=== PATIENT | female | born 1990 | race African-American/Black ===

== ENCOUNTER 2019-11-16 08:25 | Inpatient (IN) | payer OTHER ==
[2019-11-15 12:52] VITALS: BMI 30.1
[2019-11-16] MEDS ORDERED: VASOPRESSIN 20 UNITS/ML VIAL IV ONE (09:43)
[2019-11-16] MEDS ORDERED: DEXAMETHASONE SOD PHOSPHATE/PF 10 MG/ML SDV ONE (10:12)
[2019-11-16] MEDS ORDERED: MIDAZOLAM HCL 2 MG/2 ML SINGLE DOSE VIAL ONE ×2 (11:32)
[2019-11-16] MEDS ORDERED: PROPOFOL 20 ML ONE (11:55)
[2019-11-16] MEDS ORDERED: LIDOCAINE HCL/PF 2% SDV 5ML VIAL ONE (11:55)
[2019-11-16] MEDS ORDERED: ROCURONIUM BROMIDE 50 MG/5 ML SYRINGE ONE (11:55)
[2019-11-16] MEDS ORDERED: fentaNYL CITRATE 250 MCG/5 ML VIAL ONE (11:55)
[2019-11-16] MEDS ORDERED: ceFAZolin 2 GRAM PREMIX BAG IVPB ONE (12:02)
[2019-11-16] MEDS ORDERED: HEPARIN NA (PORCINE) 5,000 UNITS/ML 1ML VIAL ONE (12:04)
[2019-11-16] MEDS ORDERED: KETOROLAC TROMETHAMINE 30 MG/1 ML VIAL ONE (12:13)
[2019-11-16] MEDS ORDERED: DEXAMETHASONE SOD PHOSPHATE 4 MG/1 ML VIAL ONE (12:13)
[2019-11-16] MEDS ORDERED: ceFAZolin SODIUM 1 GM VIAL ONE ×2 (12:13)
[2019-11-16] MEDS ORDERED: HYDROmorphone HCl 2 MG/ML VIAL ONE (12:31)
[2019-11-16] MEDS ORDERED: NEOSTIGMINE METHYLSULFATE 0.5 MG/ML - 10 ML MDV ONE (14:25)
[2019-11-16] MEDS ORDERED: GLYCOPYRROLATE 0.2 MG/1 ML VIAL ONE ×2 (14:25)
--- NOTE | 2019-11-16 14:40 | OP ---
Operative Note - Note: Operative Date: 11/16/19 Pre-Operative Diagnosis: Large, symptomatic leiomyomata. Operation: Myomectomy. Supracervical hysterectomy. BS. AMBER. Findings: Very large adenomyosis with distortion of the uterus. Adhesions. Myomas. Post-Operative Diagnosis: Other (Adenomyosis.) Anesthesiologist/ATTENDANT SALES: Wai Smith Anesthesia: General Estimated Blood Loss (mls): 750 (Cell saver returned 250 cc.) Blood Volume Replaced (mls): 250 Operative Report Dictated: Yes
[2019-11-16] MEDS ORDERED: ESMOLOL HCL 100,000 MCG/10 ML VIAL ONE (14:43)
[2019-11-16] MEDS ORDERED: DOCUSATE SODIUM 100 MG CAPSULE (FP) PO PRN (14:48)
[2019-11-16] MEDS ORDERED: BISACODYL 5 MG TABLET.DR (FP) PO PRN (14:48)
[2019-11-16] MEDS ORDERED: oxyCODONE HCL 5 MG TABLET PO PRN ×3 (14:48→15:02)
[2019-11-16] MEDS ORDERED: IBUPROFEN 800 MG/8 ML IJ IVPB PRN (14:48)
[2019-11-16] MEDS ORDERED: ONDANSETRON 4 MG/2 ML VIAL IVPUSH PRN ×2 (14:48→15:00)
[2019-11-16] MEDS ORDERED: PROMETHAZINE HCL 25 MG/1 ML VIAL IVPUSH PRN (15:00)
[2019-11-16] MEDS ORDERED: LACTATED RINGERS SOLUTION 1,000 ML/1,000 ML INFUS.BAG IV SCH (15:00)
--- NOTE | 2019-11-16 15:03 | SURG ---
Surgery Denier Control Operator Note Denier Control Operator: Roopa Shi PA-C Date of Service: 11/16/19 Diagnosis: Large, symptomatic leiomyomata. Procedure: Myomectomy. Supracervical hysterectomy. BS. LOA. Ochoa was present for the entirety of the operative procedure. For further detail, please refer to operative report. Visit type - Case Type Case Type: Scheduled - Emergency Emergency Visit: No - New patient This patient is new to me today: Yes Date on this admission: 11/16/19
[2019-11-16] MEDS ORDERED: ACETAMINOPHEN 1000 MG/100 ML VIAL (NON FORMULARY) IVPB ONE (15:05)
[2019-11-16 17:54] LABS: HEMATOCRIT 29.6 % (32.4-45.2); HEMOGLOBIN 9.1 GM/dL (10.7-15.3); MCHC 30.9 g/dl (32.0-36.0); MEAN CELL VOLUME 60.7 fl (80-96); MEAN PLT VOLUME 9.1 fl (7.5-11.1); PLATELET COUNT 223 K/MM3 (134-434); RBC 4.88 M/mm3 (3.60-5.2); RDW 23.6 % (11.6-15.6); WHITE BLOOD COUNT 10.1 K/mm3 (4.0-10.0)
[2019-11-16 17:55] LABS: MCH 18.8 pg (25.7-33.7)
[2019-11-16] MEDS: CEFAZOLIN 1 GM/D5W 1 GM/50 ML BAG IVPB SCH (21:26)
[2019-11-16] MEDS: ACETAMINOPHEN 1000 MG/100 ML VIAL (NON FORMULARY) IVPB SCH ×2 (21:27→22:54)
--- NOTE | 2019-11-16 22:36 | PN ---
Progress Note (short form) - Note Progress Note: POD # 0 VSS. Pt. feels well. Pain under control. Procedure explained in details. Reasons for hysterectomy reviewed All questions answered. FRANCHESKA collier.
[2019-11-17] MEDS: ACETAMINOPHEN 1000 MG/100 ML VIAL (NON FORMULARY) IVPB SCH (03:02)
[2019-11-17] MEDS: CEFAZOLIN 1 GM/D5W 1 GM/50 ML BAG IVPB SCH (03:02)
--- NOTE | 2019-11-17 08:11 | PN ---
Progress Note (short form) - Note Progress Note: Post op day#1/S/P Supracervical hysterectomy under GA with TAP block uneventful.Patient stable and c/o little pain for which she is on medication.No any anesthesia related problem.Patient Dc from the anesthesia care.
--- NOTE | 2019-11-17 08:26 | PN ---
Progress Note (short form) - Note Progress Note: POD#1. Feels well. Stable. OOB. Surgery discussed again. PE: OK. Abd. soft. Dressing clean. Wound dry. No CVA, extrem.T I/P: Good recovery. GUMARO. OOB! Lovenox.
[2019-11-17] MEDS: ENOXAPARIN NA (PORCINE) 30 MG/0.3 ML DISP.SYRIN SQ SCH (09:54)
[2019-11-17] MEDS: FERROUS SO4 325 MG TABLET (FP) PO SCH (09:54)
[2019-11-17] MEDS ORDERED: IRON CARBONYL PO SCH (10:00)
[2019-11-17 10:47] LABS: HEMATOCRIT 27.7 % (32.4-45.2); HEMOGLOBIN 8.7 GM/dL (10.7-15.3); MCHC 31.5 g/dl (32.0-36.0); MEAN CELL VOLUME 61.7 fl (80-96); MEAN PLT VOLUME 9.1 fl (7.5-11.1); PLATELET COUNT 230 K/MM3 (134-434); RBC 4.49 M/mm3 (3.60-5.2); RDW 24.5 % (11.6-15.6)
[2019-11-17 10:50] LABS: MCH 19.4 pg (25.7-33.7)
[2019-11-17 11:28] LABS: BLOOD UREA NITROGEN 9.3 mg/dL (7-18); CREATININE 0.7 mg/dL (0.55-1.3); POTASSIUM 4.3 mmol/L (3.5-5.1)
--- NOTE | 2019-11-17 15:21 | OP ---
DATE OF OPERATION: DATE OF DICTATION: 11/16/2019 PREOPERATIVE DIAGNOSIS: Large, symptomatic leiomyomata. POSTOPERATIVE DIAGNOSES: Large adenomyosis with gross distortion of the uterus. Leiomyomata. Left-sided pelvic adhesions. OPERATION: Myomectomy. Supracervical hysterectomy. Bilateral salpingectomy. Lysis of adhesions. SURGEON: Tracy Perry MD DOCK LOADER: SLOAN Adan ANESTHESIA: Wai Smith MD; general. PROCEDURE AND FINDINGS: Under general anesthesia, in dorsal supine position, patient was examined. Uterus was enlarged at 24-26-weeks' gestational size. Cardoso catheter was instilled. Patient was prepped and draped for the laparotomy. Abdomen was entered through a Pfannenstiel incision that was then carried through the fascia. The rectus muscles were and peritoneum was opened vertically. Cell Saver was activated. With some difficulty, uterus was then elevated above the abdomen and cul-de-sac was packed with a rolled, moist lap pad. Thorough examination was carried out. of the uterus which was at least 20-22-weeks' size, while the uterus itself grossly stretched and distorted by what seemed to be adenomyosis. Bilaterally, adnexa were noted symmetrically on the top of the uterus. With some difficulty, a long, thin cervix was palpated, somewhat deviated to the right. Large pedunculated myoma about 5 cm was noted on the fundus. Posterior myoma bulging from the uterine wall was also observed. Adnexa were completely within normal limits with ovulatory stigmata bilaterally. Tubes were normal. Decision was made to do the posterior myomectomy first. Uterine serosa was incised vertically using Bovie and very irregular, large myoma was approached. Myoma was put under tension, and by blunt, sharp, and electrodissection, it was freed. The area was bleeding profusely. It was disappointing that myoma was relatively small, about 5-7-cm size, comparing to general size of the uterus. It did not affect the general size and shape of the uterus a great deal. The area was secured, nonetheless. Multiple layers of Biosyn-0 sutures were used to control the bleeding. Using Biosyn 2-0, serosa and external layer of the myometrium were closed in a baseball suture. Uterus was explored, again. A few isolated small myomas were noted. It was an inescapable conclusion of the surgeon that uterus was largely distorted by extensive and relatively symmetrical adenomyosis. Removal of the myomas would not have changed the future function of the uterus. Decision had to be made, whether hysterectomy is the right way to approach it. I broke scrub and called patient's family. I spoke to her mother and her . Her mother had excellent command of Divehi and was translating for the . I explained the situation and asked them to help me with making a decision. Patient would have great deal of difficulties both conceiving and carrying the with uterus like that. She also has had a history of severe menometrorrhagia, multiple transfusions. 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 She has May-Thurner syndrome and cannot be treated with hormones under any circumstances, which also limits the ability to control her bleeding. Prior to this operation, patient was consulted by both the regional trainer and vascular surgeon. I presented the situation to the family. I offered closing the abdomen and leaving the uterus inside. Both patient's mother and her felt very strongly that her health is the most important thing. Patient has been suffering tremendously with menorrhagia, as well as pelvic pain, and possibility of a thrombosis increased with the size of the uterus is an added concern. They both urged me firmly and without any hesitation to go ahead and remove the uterus. I explained to them that I will preserve her ovaries and most likely part of the cervix. Upon returning to the operating room, LigaSure device was used. Right-sided round ligament was opened, and with some difficulty, bladder flap was developed and incised. Utero-ovarian ligament and fallopian tube were then dissected off the uterus using a LigaSure device. Right side was skeletonized and uterine vessels were noted entering the uterus relatively high. They were clamped, divided, and double-suture ligated using Vicryl-1 material. With bladder flap out of the way, cardinal ligaments were also partly clamped, divided, and suture ligated. Left side of the uterus was not as easy. Left round ligament was shortened and thick. It was divided and so was utero-ovarian ligament and fallopian tube, which were using LigaSure from the body of the uterus. Adhesions of some bowel and omentum were noted to the posterior aspect of the broad ligament and lower uterine segment. They were divided completely using sharp dissection as well as Bovie. Bowel and omentum were allowed to drop back. Bladder flap was then completely incised, and by sharp and blunt dissection, taken off the lower uterine segment and cervix. With cervix being deviated to the right side, it was difficult to find where the uterine vessels were entering the uterus. Thorough dissection was carried out to skeletonize this area, and vessel plexus was then clamped with Tomy clamp, divided, and doubly suture ligated with Vicryl-1 suture material. Cardinal ligaments were much thicker and more extensive on the left side, and they required three bites and clamping, dividing, and suture ligating. At that point, uterine fundus was dissected off the cervix with about three-fourths of the cervix being left. Endocervical canal was coagulated. Cervical stump was secured with interrupted [id number] Vicryl-1 sutures. About 200 mL of blood was retained in the uterus, escaped into the abdomen, and was suctioned. This blood probably was not in circulation, but it was still added to the blood loss assessment. Pelvis was then thoroughly lavaged and suctioned. Cervical stump was closed nicely and there was no bleeding. Decision was made to remove both fallopian tubes and this was done by dividing the mesosalpinx with the LigaSure device. Both tubes were sent for pathological assessment. Excellent blood supply was left for both ovaries. Pelvis was again lavaged and hemostasis was assessed meticulously. Areas of dissection were covered with pieces of Surgicel. Procedure was completed and we proceeded to close the abdomen. Count was reported as correct. Peritoneum was closed with continuous, running Biosyn 2-0 suture. Fascia was closed with continuous, running Vicryl-1 suture. Subcutaneous tissue was closed with interrupted Biosyn and 2-0 Vicryl sutures and skin edges were approximated with 3-0 V-Loc suture and Steri-Strips. Sterile dressing was placed on the incision and held with a binder. In spite of the outcome being different than the one intended, surgery went uneventfully. There were no complications during the operation. Position of the ureters was checked frequently and they were far away from the dissection area. Urine was clear in the Cardoso catheter bag. Total blood loss was estimated at 750 m. Cell Saver returned 250 mL to the patient. Patient was awakened without difficulty, and transferred to the PACU, comfortable and stable. TRACY PERRY MD [id number]
[2019-11-17] MEDS ORDERED: IBUPROFEN 600 MG TABLET (FP) PO PRN (15:27)
--- NOTE | 2019-11-17 19:21 | PN ---
Progress Note (short form) - Note Progress Note: VSS. Excellent pain control; just occasional motrin. Passing gas. PE excellent. Abd. flat. BS pos. Incision clean and dry. No cva, extrem T. Anticipating discharge tomorrow.
[2019-11-18] MEDS ORDERED: ACETAMINOPHEN 325 MG TABLET (FP) PO PRN (05:07)
[2019-11-18 08:41] LABS: BASO % 0.2 % (0-2.0); EOS % 0.7 % (0-4.5); HEMATOCRIT 25.6 % (32.4-45.2); HEMOGLOBIN 7.9 GM/dL (10.7-15.3); LYMPH % 34.8 % (8-40); MCHC 30.8 g/dl (32.0-36.0); MEAN CELL VOLUME 62.1 fl (80-96); MEAN PLT VOLUME 9.1 fl (7.5-11.1); MONO % 5.1 % (3.8-10.2); NEUT % 59.2 % (42.8-82.8); PLATELET COUNT 180 K/MM3 (134-434); RBC 4.12 M/mm3 (3.60-5.2); RDW 24.6 % (11.6-15.6); WHITE BLOOD COUNT 7.1 K/mm3 (4.0-10.0)
[2019-11-18] MEDS ORDERED: ASPIRIN 81 MG CHEWABLE TABLETS PO SCH ×2 (08:45→10:00)
[2019-11-18 08:48] LABS: MCH 19.2 pg (25.7-33.7)
[2019-11-18] MEDS: FERROUS SO4 325 MG TABLET (FP) PO SCH (10:01)
[2019-11-18] MEDS: ENOXAPARIN NA (PORCINE) 30 MG/0.3 ML DISP.SYRIN SQ SCH (10:02)
[2019-11-18 10:30] VITALS: BP 130/83; PULSE 92; TEMP 98.5
--- NOTE | 2019-11-18 11:37 | DS ---
"Physical Exam: SUBJECTIVE: Patient seen and examined. She had no complaints of Cp/SOB. Tolerating a diet without nausea, passing flatus but no BM. OOB and ambulating OBJECTIVE: Vital Signs Period Temp Pulse Resp BP Sys/Osborn Pulse Ox Last 24 Hr 97.8 F-98.5 F 89-99 20-20 117-130/64-83 PHYSICAL EXAM GENERAL: The patient is awake, alert, and fully oriented, in no acute distress. LUNGS: Breath sounds equal, clear to auscultation bilaterally. HEART: Regular rate and rhythm. ABDOMEN: Soft, nondistended, non-tender. Inc c/d/i with steri-strips. Abdominal binder in place. EXTREMITIES: warm, well-perfused, no edema. No calf tenderness or swelling noted b/l LABS Laboratory Results - last 24 hr 11/18/19 07:46 WBC 7.1 RBC 4.12 Hgb 7.9 L Hct 25.6 L MCV 62.1 L MCH 19.2 L MCHC 30.8 L RDW 24.6 H Plt Count 180 D MPV 9.1 Absolute Neuts (auto) 4.2 Neutrophils % 59.2 Lymphocytes % 34.8 Monocytes % 5.1 Eosinophils % 0.7 Basophils % 0.2 Nucleated RBC % 0 HOSPITAL COURSE: The patient was admitted to the Med-Surg Unit after an elective repair of her leiomyomas. Now, s/p open abdominal hysterectomy. Pain management was achieved with a narcotic and non-narcotic oral and IV regimen. POD #1, the patients diet was advanced and her crawford catheter was rmoved. Hemoglobin and hematocrit were monitored as well as vitals and remained stable throughout admission. Pretty-operative IV ABX were administered. DVT prophylaxis was achieved with Lovenox 30mg qd, SCDs and early ambulation, and aspirin 81 mg daily startng POD#2. The patient was discharged to home with eliquis 2.5mg gibson BID and her QOD aspirin dose was resumed. She was to follow up with hematology one week post-op. The patient ambulated the halls without issue. Narcotic scripts were checked with [facility] prior to escribe. The discharge instructions and an oral pain management plan were reviewed with the patient. All questions answered. Above plan discussed with Dr. Mike and agreed. Date of Admission:11/16/19 Date of Discharge: 11/18/19 Minutes to complete discharge: 30 Discharge Summary Problems reviewed: Yes Reason For Visit: PELVIC PAIN Condition: Good - Instructions Diet, Activity, Other Instructions: Dr. Mike AUDIT CONTROL CLERK discharge instructions Physical activity: Resume your normal everyday activity as tolerated no heavy lifting or exercise until seen by your surgeon. You may walk unlimited amounts and climb stairs. You may resume driving the car when you feel safe and comfortable behind the wheel. No sexual activity as instructed by Dr. Mike. Wound care: If you have a bandage, leave it on, and keep dry for 48 hours. After that time discard the outer bandage. If they are tapes on the skin under the outer of bandage leave them in place. They will peel off in the next 7 to 10 days. Do Not Peel them off. If there are tapes present on the skin, you may shower over them. Diet: There are no dietary restrictions. Eat healthy, high-fiber foods. Drink 6 to 8 glasses of liquid each day. This will assist in keeping your bowels are regular. Pain management: You may take Tylenol or acetaminophen or Ibuprofen (for example, Motrin, Advil etc.) every 6 hours as needed for pain. Call Dr. Mike for any of the following: * Severe pain not relieved by medication * Fever of 101 or higher * Excessive bleeding or drainage on dressing Call the office at [phone] for an appointment in seven to 10 days. Follow up with your hematology physician next week, you were given a script for eliquis a blood thinner. please take it as prescribed. Continue your aspirin 81mg every other day. This report was requested by: Roopa Shi | Reference #: [id number] Disposition: HOME - Home Medications Comprehensive Discharge Medication List: Ambulatory Orders Iron,Carbonyl [Feosol] 90 mg PO DAILY 11/15/19 Aspirin [ASA -] 81 mg PO Q48H tab.chew 11/18/19 Docusate Sodium [Colace -] 100 mg PO BID #14 capsule 11/18/19 Ibuprofen [Motrin -] 600 mg PO Q4H PRN tablet 11/18/19 Oxycodone HCl 5 mg PO Q6H PRN #12 tablet MDD 4 11/18/19 Prescription Drug Monitoring Program (I-STOP) results: I-STOP reviewed and no issues identified This patient is new to me today: No Emergency Visit: No Critical Care patient: No - Discharge Referral Referred to [facility] No"
[2019-11-18 14:10] LABS: ANISOCYTOSIS 1+; MACROCYTOSIS 0; OVALOCYTE 1+; PLATELET ESTIMATE NORMAL; TARGET CELLS 1+; TEAR DROP CELLS 1+
--- NOTE | 2019-11-18 15:30 | PATH ---
Surgical Pathology Report Patient Name: FUNMI WARNRE [facility]. Rec. #: [id number] /Age/Gender: 1990 (Age: 29) / F Account: [id number] Location: [facility] OBS/CERAMIC SPRAYER Taken: 11/16/2019 Received: 11/16/2019 Reported: 11/18/2019 Physicians: Sher Mike MD Specimen(s) Received A: POSTERIOR MYOMA AND UTERUS B: FALLOPIAN TUBE LEFT C: FALLOPIAN TUBE RIGHT Clinical History Leiomyomas of uterus Final Diagnosis A. POSTERIOR MYOMA AND UTERUS, SUPRACERVICAL HYSTERECTOMY: LEIOMYOMATA. SECRETORY TYPE ENDOMETRIUM. PORTION OF ENDOCERVIX (STUMP) WITH NO SIGNIFICANT PATHOLOGIC CHANGE. B. LEFT FALLOPIAN TUBE, SALPINGECTOMY: PORTION OF FALLOPIAN TUBE WITH ACUTE INFLAMMATION AT THE SEROSA AND SUBSEROSA. C. RIGHT FALLOPIAN TUBE, SALPINGECTOMY: PORTION OF FALLOPIAN TUBE WITH ACUTE INFLAMMATION AT THE SEROSA AND SUBSEROSA. Electronically Signed Estephania El M.D. Gross Description A. Received fresh labeled "posterior myoma and uterus," is a 1769 g supracervically amputated uterus with no attached adnexa. The specimen measures 15.5 cm from superior to inferior, 15.0 cm from anterior to posterior and 11 cm from left to right. The serosa is jonas-whalen with multiple bulging subserosal nodules. The endometrial cavity measures 13 cm in length and 7.5 cm from cornu to cornu. The endometrium jonas-red and thick, measuring up to 0.6 cm in thickness. The myometrium displays abundant intramural nodules, measuring up to 6 cm in greatest dimension. Sectioning of the fibroids displays jonas, rubbery parenchyma. The remaining myometrium is jonas-pink and measures up to 8.5 cm in thickness. Separately received within the same container is a 69 g, 6.0 x 4.0 x 3.8 cm jonas, rubbery nodule, consistent with a fibroid. The cut surface of the fibroid is jonas and rubbery with whorled architecture. No areas of hemorrhage or necrosis are identified. Immigration Consultant sections are submitted in 15 cassettes as follows: 1-cervical stump margin of resection; 3-7-pcnubywuzhpaty; 7-3-ycetlwnhhs nodules; 9-15-bdtshdrquk nodules; 72-96-cupxjxvyhq received fibroid. B. Received in formalin labeled "left fallopian tube," is a 4.5 cm in length fimbriated fallopian tube. The outer surface is whalen purple and smooth. Sectioning reveals an unremarkable lumen. Immigration Consultant sections are submitted in 2 cassettes as follows: 1-fimbria; 2-cross sections of fallopian tube. C. Received in formalin labeled "right fallopian tube," is a 4 cm in length fimbriated fallopian tube. The outer surface is sales purple and smooth. Sectioning reveals an unremarkable lumen. Immigration Consultant sections are submitted in 2 cassettes as follows: 1-fimbria; 2-cross sections of fallopian tube. 11/17/2019 [facility]11/17/2019
== END 2019-11-18 14:15 | disposition home or self-care (01) | DRG 743 ==
LOC: JSAMEDAYSX 09:19 → J3W 20:46
PROVIDERS: ADMIT Specialist; ATTEND Specialist
PROC: 0UT90ZL Resection of Uterus, Supracervical, Open Approach (ICD-10-PCS; 2019-11-16)
PROC: 0DNW0ZZ Release Peritoneum, Open Approach (ICD-10-PCS; 2019-11-16)
PROC: 0UT20ZZ Resection of Bilateral Ovaries, Open Approach (ICD-10-PCS; 2019-11-16)
PROC: 0UT70ZZ Resection of Bilateral Fallopian Tubes, Open Approach (ICD-10-PCS; 2019-11-16)
PROC: 0UB90ZZ Excision of Uterus, Open Approach (ICD-10-PCS; principal; 2019-11-16 11:00)
DX: N80.0 Endometriosis of uterus (principal); D25.9 Leiomyoma of uterus, unspecified; K66.0 Peritoneal adhesions (postprocedural) (postinfection)
CPT/HCPCS: 36415; 80048; 84703; 85025; 85027; 86850; 86891; 86900; 86901; 88302-TC; 88307-TC; 94010; 94760; J0131; J1644